=== PATIENT | female | born 1955 | race Caucasian/White ===

== ENCOUNTER 2017-01-21 10:26 | Emergency (ER) | payer OTHER ==
[~2017-01-21] VITALS: Ht 157.5 cm; Wt 53.8 kg
[~2017-01-21 10:26] MED LIST: BENICAR20 MG PO; Lipitor PO; PREDNISONE50 MG PO; PROAIR HFA8.5 GM IH; THERAGRAN1 TABLET PO; ZITHROMAX Z-PA250 MG PO
[2017-01-21 12:28] LABS: HEMATOCRIT 45.3 % (36.0-46.0); MCH 30.7 PG (29.0-34.0); MCHC 33.6 G/DL (30.0-36.0); MCV 91.5 FL (83-99); MEAN PLAT.VOLUME 10.1 uM^3 (9.5-12.4); PLATELET COUNT 274 K/uL (156-360); RBC DIS.WIDTH-CV 14.6 % (11.8-14.6); RED BLOOD COUNT 4.95 M/uL (3.80-5.20); WHITE BLOOD COUNT 7.6 K/uL (4.1-10.2)
[2017-01-21 12:42] LABS: CHLORIDE 108 mEq/L (99-109); POTASSIUM 5.2 mEq/L (3.7-5.4); SODIUM 142 mEq/L (136-147)
[2017-01-21 12:44] LABS: GLUCOSE 92 mg/dL (70-99)
[2017-01-21 12:45] LABS: ANION GAP 11 MEQ/L (2-14)
[2017-01-21 12:46] LABS: TOTAL BILIRUBIN 0.4 mg/dL (0.0-1.0)
[2017-01-21 12:47] LABS: ALKALINE PHOSPHATASE 58 IU/L (3-129)
[2017-01-21 12:48] LABS: GFR ESTIMATE (CALCULATED) > 59 mL/min/
[2017-01-21 12:49] LABS: TROP-I INTERPRETATION NEGATIVE; TROPONIN-I < 0.01 ng/mL (0.0-0.30); UREA NITROGEN (BUN) 15 mg/dL (9-23)
[2017-01-21] MEDS ORDERED: BENICAR20 MG PO ×2 (14:09→14:57)
[2017-01-21] MEDS ORDERED: AMLODIPINE BES2.5 MG PO (14:10)
[2017-01-21] MEDS ORDERED: NORVASC2.5 MG PO ×2 (14:57→15:16)
[2017-01-21 15:53] LABS: TROP-I INTERPRETATION NEGATIVE; TROPONIN-I < 0.01 ng/mL (0.0-0.30)
[2017-01-21 16:12] VITALS: BP 116/87
== END 2017-01-21 16:14 | disposition home or self-care (01) ==
LOC: EME 10:26 → EXP 12:24
PROVIDERS: Nurse Practitioner Family
DX: I10 Essential (primary) hypertension (principal); H53.8 Other visual disturbances; E78.5 Hyperlipidemia, unspecified; F17.200 Nicotine dependence, unspecified, uncomplicated
CPT/HCPCS: 70450; 71020; 80053; 84484; 85027; 93005; 99281; 99285

== ENCOUNTER 2017-04-29 03:32 | Inpatient (IN) | payer OTHER ==
[~2017-04-29] VITALS: Ht 157.5 cm; Wt 54.3 kg
[~2017-04-29 03:32] MED LIST changes: +AMLODIPINE BES2.5 MG PO; +NORVASC2.5 MG PO
[2017-04-29 03:56] LABS: HEMATOCRIT 42.8 % (36.0-46.0); MCHC 32.7 G/DL (30.0-36.0); MCV 91.6 FL (83-99); MEAN PLAT.VOLUME 9.9 uM^3 (9.5-12.4); PLATELET COUNT 307 K/uL (156-360); RBC DIS.WIDTH-CV 15.7 % (11.8-14.6); RBC DIS.WIDTH-SD 52.2 % (39-53); RED BLOOD COUNT 4.67 M/uL (3.80-5.20); WHITE BLOOD COUNT 7.5 K/uL (4.1-10.2)
[2017-04-29 04:07] LABS: CHLORIDE 111 mEq/L (99-109); POTASSIUM 4.1 mEq/L (3.7-5.4); SODIUM 149 mEq/L (136-147)
[2017-04-29 04:09] LABS: GLUCOSE 119 mg/dL (70-99)
[2017-04-29 04:11] LABS: ANION GAP 14 MEQ/L (2-14)
[2017-04-29 04:13] LABS: GFR ESTIMATE (CALCULATED) > 59 mL/min/
[2017-04-29 04:14] LABS: UREA NITROGEN (BUN) 10 mg/dL (9-23)
[2017-04-29] MEDS ORDERED: OLMESARTAN-HCT1 EAC2 PO (07:32)
[2017-04-29] MEDS ORDERED: GUMMI BEAR MUL1 EACH PO (07:33)
[2017-04-29] MEDS ORDERED: TURMERIC500 MG PO (07:34)
[2017-04-29 08:29] VITALS: BP 131/75
[2017-04-29 11:53] VITALS: BP 133/68
[2017-04-29 15:38] VITALS: BP 134/69
[2017-04-29 19:58] VITALS: BP 134/82
[2017-04-29 23:18] VITALS: BP 146/87
[2017-04-30 05:37] VITALS: BP 137/86
[2017-04-30 07:04] LABS: ANION GAP 8 MEQ/L (2-14); CHLORIDE 108 MEQ/L (99-109); GFR ESTIMATE (CALCULATED) > 59 mL/min/; GLUCOSE 156 mg/dL (70-99); POTASSIUM 4.4 MEQ/L (3.7-5.4); SAMPLE HEMOLYSIS CHECK 0; SAMPLE ICTERIC CHECK 0; SAMPLE LIPEMIA CHECK 0; SODIUM 141 MEQ/L (136-147); UREA NITROGEN (BUN) 15 mg/dL (9-23)
[2017-04-30 08:26] VITALS: BP 155/81
[2017-04-30 12:10] VITALS: BP 169/75
[2017-04-30] MEDS ORDERED: AZITHROMYCIN500 M1 PO (13:42)
[2017-04-30] MEDS ORDERED: DUONEB 2.5-0.5 M3 ML AEROSOL (13:43)
[2017-04-30] MEDS ORDERED: ACETAMINOPHEN650 M5 PO (13:43)
[2017-04-30] MEDS ORDERED: ADVAIR HFA120 INHALA IH (13:44)
[2017-04-30] MEDS ORDERED: MEDROL DOSEPAK4 MG PO (13:44)
== END 2017-04-30 14:46 | disposition home or self-care (01) | DRG 191 ==
LOC: EME → EDBD 03:32 → 3EAST 05:50 → EDOF 05:50 → ENRESERV 05:52 → 3EAST 07:41
PROVIDERS: Family Medicine Sports Medicine
DX: J44.0 Chronic obstructive pulmonary disease with (acute) lower respiratory infection (principal); J20.9 Acute bronchitis, unspecified; J44.1 Chronic obstructive pulmonary disease with (acute) exacerbation; E87.0 Hyperosmolality and hypernatremia; I35.1 Nonrheumatic aortic (valve) insufficiency; I10 Essential (primary) hypertension; E78.5 Hyperlipidemia, unspecified; G89.29 Other chronic pain; M54.5 Low back pain; R00.0 Tachycardia, unspecified; R51 Headache; F17.200 Nicotine dependence, unspecified, uncomplicated
CPT/HCPCS: 71020; 80048; 85027; 85379; 90686; 94640; 94640 76; 94644; 94760; 94799; 99202; 99281; 99285; J1100; J1650; J2930; J3475; J7030; J7644